=== PATIENT | male | born 1985 | race African-American/Black ===

== ENCOUNTER 2020-12-03 08:01 | Emergency (ER) | payer SELFPAY | END 2020-12-03 09:21 | disposition home or self-care (01) | LOC: ERS 08:01 | DX: S39.012A Strain of muscle, fascia and tendon of lower back, initial encounter (principal); I10 Essential (primary) hypertension; F17.210 Nicotine dependence, cigarettes, uncomplicated; X50.0XXA Overexertion from strenuous movement or load, initial encounter; Y99.0 Civilian activity done for income or pay | CPT/HCPCS: 99283 ==

== ENCOUNTER 2021-01-28 12:51 | Emergency (ER) | payer SELFPAY ==
[2021-01-28 13:42] LABS: Hemoglobin 15.1 g/dL (14.0-18.0); Mean Corpuscular HGB CONC 33.2 g/dL (32.0-36.0); Mean Corpuscular Hemoglobin 30.6 pg (27.0-31.0); Mean Corpuscular Volume 92.2 fL (78.0-98.0); RBC Distribution Width 12.5 % (11.5-14.5); Red Blood Cell (RBC) Count 4.93 mill/uL (4.70-6.10); White Blood Cell (WBC) Count 8.6 thou/uL (4.8-10.8)
[2021-01-28 14:20] LABS: Eosinophils 1 % (0-10); Lymphocytes 43 % (21-51); MDiff Complete? YES; Mean Platelet Volume 10.5 fL (7.4-10.4); Monocytes 7 % (0-10); Neutrophil 31 % (42-75); Platelet Count 110 thou/uL (130-400); Platelet Morphology Comment Appears Decreased; RBC Morphology Normal; Reactive Lymphocytes 17 % (0-10)
[2021-01-28 14:54] LABS: Albumin 3.7 g/dL (3.5-5.0)
[2021-01-28 14:55] LABS: Calcium 8.7 mg/dL (7.8-10.44); Chloride 110 mmol/L (98-107); Sodium 139 mmol/L (136-145)
[2021-01-28 14:56] LABS: Globulin 2.5 g/dL (2.4-3.5); Glucose 111 mg/dL (70-105); Protein, Total 6.2 g/dL (6.0-8.3)
[2021-01-28 14:57] LABS: Anion Gap 10 mmol/L (10-20); Carbon Dioxide 23 mmol/L (22-29)
[2021-01-28 14:58] LABS: Bilirubin, Total 0.4 mg/dL (0.2-1.2)
[2021-01-28 14:59] LABS: Alkaline Phosphatase 51 U/L (40-110); Calc. Creatinine Clearance 0 mL/min (70-130)
[2021-01-28 15:00] LABS: BUN (Urea Nitrogen) 14 mg/dL (8.9-20.6)
[2021-01-28 15:01] LABS: AST (SGOT) 12 U/L (5-34); Magnesium 1.7 mg/dL (1.6-2.6)
[2021-01-28 15:02] LABS: ALT (SGPT) 7 U/L (8-55); CK (CPK) 212 U/L (30-200)
[2021-01-28 15:22] LABS: Bacteria/HPF None Seen HPF (None Seen); Bilirubin Negative (Negative); Blood, Urine Negative (Negative); Clarity Clear (Clear); Glucose, Urine (Dipstick) Normal (Negative); Ketone, Urine Negative (Negative); Leukocyte 75 Leu/uL (Negative); Nitrite Negative (Negative); Protein, Urine (Dipstick) Negative (Neg-Trace); RBC/HPF 0-3 HPF (0-3); Specific Gravity, Urine 1.029 (1.002-1.036); Squamous Epithelial 0-3 HPF (0-3); Urobilinogen Normal mg/dL (Less than 2)
== END 2021-01-28 15:52 | disposition home or self-care (01) ==
LOC: ERS 12:51
DX: T67.5XXA Heat exhaustion, unspecified, initial encounter (principal); I10 Essential (primary) hypertension; F17.210 Nicotine dependence, cigarettes, uncomplicated
CPT/HCPCS: 36415; 80053; 81003; 81015; 82550; 83735; 85025; 99283

== ENCOUNTER 2021-10-24 09:36 | Emergency (ER) | payer SELFPAY | END 2021-10-24 12:46 | disposition home or self-care (01) | LOC: ERS 09:36 | DX: S93.401A Sprain of unspecified ligament of right ankle, initial encounter (principal); I10 Essential (primary) hypertension; Z87.891 Personal history of nicotine dependence; X58.XXXA Exposure to other specified factors, initial encounter ==

== ENCOUNTER 2022-05-21 21:51 | Emergency (ER) | payer SELFPAY ==
[2022-05-21] MEDS ORDERED: Ibuprofen 800 MG TAB ONE (23:03)
[2022-05-21 23:09] LABS: #Eosinphils 0.1 thou/uL (0.0-0.7); #Lymphocytes 1.5 thou/uL (1.20-3.40); #Neutrophils 6.1 thou/uL (1.40-6.50); %Basophils 0.2 % (0.0-1.0); %Eosinophils 1.7 % (0.0-10.0); %Lymphocytes 16.7 % (21.0-51.0); %Monocytes 11.4 % (0.0-10.0); %Neutrophils 70.1 % (42.0-75.0); Hemoglobin 14.5 g/dL (14.0-18.0); Mean Corpuscular HGB CONC 34.4 g/dL (32.0-36.0); Mean Platelet Volume 8.9 fL (7.4-10.4); Platelet Count 201 10x3/uL (130-400); RBC Distribution Width 12.4 % (11.5-14.5); Red Blood Cell (RBC) Count 4.52 mill/uL (4.70-6.10); White Blood Cell (WBC) Count 8.8 10x3/uL (4.8-10.8)
[2022-05-21 23:12] LABS: ALT (SGPT) 15 U/L (8-55); AST (SGOT) 15 U/L (5-34); Albumin 4.1 g/dL (3.5-5.0); Alkaline Phosphatase 48 U/L (40-110); Anion Gap 12 mmol/L (10-20); BUN (Urea Nitrogen) 11 mg/dL (8.9-20.6); Bilirubin, Total 0.4 mg/dL (0.2-1.2); Calc. Creatinine Clearance 0 mL/min (70-130); Carbon Dioxide 21 mmol/L (22-29); Chloride 108 mmol/L (98-107); Estimated GFR 69; Globulin 2.9 g/dL (2.4-3.5); Glucose 116 mg/dL (70-105); Potassium 3.2 mmol/L (3.5-5.1); Sodium 138 mmol/L (136-145)
[2022-05-21 23:51] LABS: SARS-CoV-2 NAA Rapid Test Not Detected (NotDetected)
== END 2022-05-22 01:03 | disposition home or self-care (01) ==
LOC: ERS 21:51
DX: B34.9 Viral infection, unspecified (principal); I10 Essential (primary) hypertension; Z87.891 Personal history of nicotine dependence; Z20.822 Contact with and (suspected) exposure to COVID-19
CPT/HCPCS: 36415; 71045; 80053; 85025